=== PATIENT | male | born 1985 | race Two or more races ===

== ENCOUNTER 2021-11-24 16:43 | Emergency (ER) | payer MEDICAID ==
[~2021-11-24] VITALS: Ht 182.9 cm; Wt 70.5 kg
[2021-11-24 17:37] VITALS: BP 121/64
[2021-11-24] MEDS ORDERED: IBUP800T27 PO (17:49)
== END 2021-11-24 18:03 | disposition home or self-care (01) ==
LOC: ER 16:43
DX: S92.491A Other fracture of right great toe, initial encounter for closed fracture (principal); Z79.1 Long term (current) use of non-steroidal anti-inflammatories (NSAID); X58.XXXA Exposure to other specified factors, initial encounter; Y93.89 Activity, other specified; Y92.89 Other specified places as the place of occurrence of the external cause; Y99.8 Other external cause status
CPT/HCPCS: 73630